=== PATIENT | male | born 1980 | race Caucasian/White ===

== ENCOUNTER 2021-01-11 09:27 | Emergency (ER) | payer OTHER ==
[~2021-01-11] VITALS: Ht 180.3 cm; Wt 74.8 kg
--- NOTE | ~2021-01-11 | EMS ---
[address] [address] EMS Patient Care Report Name: MILDRED OTERO Room #: DEP Deloris#: [id number] Admission: 01/11/21 Attend Phys: Discharge: 01/11/21 Date of : 76 Report #: [id number] THIS REPORT FOR: //name// Report Transmitted: 01/12/2021 11:20 EMS Care Summary [place], [place]/[facility] Incident [id number] @ 01/11/2021 09:04 Incident Location [address] [place] [address] Patient MILDRED ROBERT Male, 40 Years 1980 Patient Address homeless Patient History Substance Abuse, Patient Allergies No known allergies, Patient Medications None Reported, Chief Complaint foot pain Disposition Transported No Lights/[place] [facility] Reason Hemorrhage/Laceration Transported To [facility] Narrative pt met at ambulance. pt a&ox4 gcs 15 and did not present in apparent distress. pt stated he is homeless and has been walking all day without socks while wearing boots and his feet are sore. pt requested to be transported to [facility]. pt walked into ambulance. pt was transferred onto ems cot and was secured in a semi fowlers position without incident. pts foot revealed skin irritation and [address] [address] EMS Patient Care Report Name: MILDRED OTERO Room #: DEP ER DenzelKari#: [id number] Admission: 01/11/21 Attend Phys: Discharge: 01/11/21 Date of : 76 Report #: [id number] some peeling off skin on the heel. pt was transported non emergent. transport was uneventful and pt rested on ems cot. pt care was transferred to appropriate staff and ems goes back in service. Initial Vitals @09:14P: 110,R: 20,BP: 164/76,Pain: 2/10,GCS: 15,SpO2: 98,Revised Trauma: 12, @09:23P: 110,R: 20,BP: 160/76,GCS: 15,SpO2: 98,Revised Trauma: 12, Assessments @09:14MENTAL:No Abnormalities,SKIN:No Abnormalities,HEENT:Head/Face: No Abnormalities,Eyes: No Abnormalities,Neck/Airway: No Abnormalities,LUNG SOUNDS:General: No Abnormalities,Left Upper: No Abnormalities,Right Upper: No Abnormalities,Left Lower: No Abnormalities,Right Lower: No Abnormalities,ABDOMEN:General: No Abnormalities,Left Upper: No Abnormalities,Right Upper: No Abnormalities,Left Lower: No Abnormalities,Right Lower: No Abnormalities,PELVIS//GI:No Abnormalities,EXTREMITIES:Left Arm: No Abnormalities,Right Arm: No Abnormalities,Left Leg: No Abnormalities,Right Leg: No Abnormalities,PULSE:NEURO:No Abnormalities,@09:19MENTAL:No Abnormalities,SKIN:No Abnormalities,HEENT:Head/Face: No Abnormalities,Eyes: No Abnormalities,Neck/Airway: No Abnormalities,LUNG SOUNDS:General: No Abnormalities,Left Upper: No Abnormalities,Right Upper: No Abnormalities,Left Lower: No Abnormalities,Right Lower: No Abnormalities,ABDOMEN:General: No Abnormalities,Left Upper: No Abnormalities,Right Upper: No Abnormalities,Left Lower: No Abnormalities,Right Lower: No Abnormalities,PELVIS//GI:No Abnormalities,EXTREMITIES:Left Arm: No Abnormalities,Right Arm: No Abnormalities,Left Leg: No Abnormalities,Right Leg: No Abnormalities,PULSE:NEURO:No Abnormalities, Impression Pain (Non-Traumatic) Procedures @09:14 ALS Assessment Response: UnchangedSucceeded Timeline 09:02,Call Received 09:02,Dispatch Notified 09:04,Dispatched 09:05,En Route 09:13,On Scene 09:14,At Patient 09:14,ALS Assessment,Response: UnchangedSucceeded, 09:14,BP: 164/76 M,PULSE: 110,RR: 20 R,SPO2: 98 Ox,ETCO2: ,BG: ,PAIN: 2,GCS: 15, 09:18,[place] [address] EMS Patient Care Report Name: MILDRED OTERO Room #: DEP Deloris#: [id number] Admission: 01/11/21 Attend Phys: Discharge: 01/11/21 Date of : 76 Report #: [id number] 09:23,BP: 160/76 M,PULSE: 110,RR: 20 R,SPO2: 98 Ox,ETCO2: ,BG: ,PAIN: ,GCS: 15, 09:24,At Destination 09:33,Call Closed Disclaimer v1.1 Copyright 2020 [employer] This EMS Care Summary contains data elements from the applicable legal record (which may be displayed differently). It is designed to provide pertinent information for the following purposes: continuity of care, clinical quality, and state data reporting. The complete legal record is available to ED staff and administrators of the receiving hospital in [employer]'s Patient Tracker. All data is provided "as is."
[2021-01-11 09:29] VITALS: BP 140/67
[2021-01-11] MEDS ORDERED: BACTRIM DS TAB1 EAC1 PO ×2 (10:04→10:10)
[2021-01-11] MEDS ORDERED: IBUPROFEN 800800 MG PO ×2 (10:04→10:10)
== END 2021-01-11 10:05 | disposition home or self-care (01) ==
LOC: ER 09:27
DX: S90.821A Blister (nonthermal), right foot, initial encounter (principal); S90.822A Blister (nonthermal), left foot, initial encounter; M79.672 Pain in left foot; M79.671 Pain in right foot; F12.90 Cannabis use, unspecified, uncomplicated; F17.210 Nicotine dependence, cigarettes, uncomplicated; Z88.0 Allergy status to penicillin